=== PATIENT | female | born 1980 | race Caucasian/White ===

== ENCOUNTER 2019-02-27 08:44 | Emergency (ER) | payer OTHER ==
[~2019-02-27] VITALS: Ht 162.6 cm; Wt 74.8 kg
[~2019-02-27 08:44] MED LIST: ALBU90I INH; ALBU90OI INH; AMOCLA875 PO; CRUTCH3 USE; DOXY100 PO; Flagyl500 MG PO; HYDACE5 PO; NAPR500 PO; Naprosyn500 MG PO; Norco 5-325 Ta1 EACH PO; OXYACE5T PO; PENVK500 PO; PROM25 PO; RXHYDACE PO; SULTRIDS PO; Vibramycin100 MG PO
[2019-02-27] MEDS ORDERED: Percocet 5-3251 EACH PO (10:58)
[2019-02-27] MEDS ORDERED: Flagyl500 MG PO (10:58)
[2019-02-27] MEDS ORDERED: IBUP800 PO (10:58)
[2019-02-27 11:46] LABS: Candida species (DNA Probe) Negative (NEGATIVE); G. vaginalis (DNA Probe) Negative (NEGATIVE); T. vaginalis (DNA Probe) Negative (NEGATIVE)
== END 2019-02-27 11:38 | disposition home or self-care (01) ==
LOC: ER 08:44
PROVIDERS: Emergency Medicine
DX: N89.8 Other specified noninflammatory disorders of vagina (principal); R10.30 Lower abdominal pain, unspecified; R10.2 Pelvic and perineal pain; I10 Essential (primary) hypertension; J45.909 Unspecified asthma, uncomplicated; F17.200 Nicotine dependence, unspecified, uncomplicated; Z88.0 Allergy status to penicillin; Z88.5 Allergy status to narcotic agent; Z88.8 Allergy status to other drugs, medicaments and biological substances
CPT/HCPCS: 87070; 87077; 87147; 87185; 87205; 87480; 87510; 87660; 96372; 99284-25; A9270-GY; J0696

== ENCOUNTER 2019-04-27 21:11 | Emergency (ER) | payer OTHER ==
[~2019-04-27] VITALS: Ht 162.6 cm; Wt 79.4 kg
[~2019-04-27 21:11] MED LIST changes: +IBUP800 PO; +Percocet 5-3251 EACH PO
[2019-04-27 22:08] LABS: BASOPHILS ABSOLUTE AUTO 0.07 K/mm3 (0.00-0.23); BASOPHILS PERCENT AUTO 1 % (0-2); EOSINOPHILS ABSOLUTE AUTO 0.17 K/mm3 (0.00-0.68); EOSINOPHILS PERCENT AUTO 2 % (0-6); Hematocrit 41.5 % (33.0-51.0); Hemoglobin 13.7 g/dL (11.5-16.0); IMMATURE GRAN ABSOLUTE AUTO 0.04 K/mm3 (0.00-0.10); IMMATURE GRAN PERCENT AUTO 0 % (0-1); LYMPHOCYTES ABSOLUTE AUTO 2.93 K/mm3 (0.84-5.20); LYMPHOCYTES PERCENT AUTO 29 % (21-46); MONOCYTES ABSOLUTE AUTO 0.53 K/mm3 (0.16-1.47); MONOCYTES PERCENT AUTO 5 % (4-13); Mean Corpuscular HGB 32.2 pg (26.0-34.0); Mean Corpuscular Volume 97 fL (80-100); NEUTROPHILS ABSOLUTE AUTO 6.53 K/mm3 (1.96-9.15); NEUTROPHILS PERCENT AUTO 64 % (41-73); Platelet Count 398 K/mm3 (150-400); RDW Coefficient Variation 12.4 % (11.7-14.2); RDW Standard Deviation 44.6 fL (35.1-46.3); Red Blood Cell Count 4.26 M/mm3 (3.80-5.20); White Blood Cell Count 10.27 K/mm3 (4.00-11.30)
[2019-04-27 22:26] LABS: Alanine Aminotransfer (ALT/SGP 15 U/L (12-78); Albumin, Blood 3.6 g/dL (3.4-5.0); Albumin/Globulin Ratio 1.1 (0.8-1.8); Alk Phos 66 U/L (50-136); Anion Gap 6 mmol/L (6-16); Aspartate Aminotrans (AST/SGOT 3 U/L (12-37); Bilirubin, Total 0.2 mg/dL (0.1-1.0); Blood Urea Nitrogen 10 mg/dL (8-24); Bun/Creatinine Ratio 15.4 (12.0-20.0); CO2, Blood 28 mmol/L (21-32); Calcium, Blood 8.6 mg/dL (8.5-10.1); Chloride, Blood 108 mmol/L (98-108); Creatinine, Blood 0.65 mg/dL (0.40-1.00); Globulin, Blood 3.3 g/dL (2.2-4.0); Glomerular Filtration Rate >60 (60-); Glucose, Blood 81 mg/dL (70-99); Potassium, Blood 3.7 mmol/L (3.5-5.5); Sodium, Blood 142 mmol/L (136-145); Total Protein, Blood 6.9 g/dL (6.4-8.2)
[2019-04-27 22:37] LABS: Source, Urine Catheter
[2019-04-27 22:41] LABS: Bilirubin, Urine Neg (Neg); Blood, Urine 2+ (Neg); Glucose Qualitative, Urine Neg (Neg); Ketones, Urine Neg (Neg); Leukocyte Esterase, Urine Neg (Neg); Nitrite, Urine Neg (Neg); Protein, Urine 2+ (Neg); Specific Gravity, Urine 1.015 (1.003-1.022); Urobilinogen, Urine NORM (Normal)
[2019-04-27 22:46] LABS: Appearance, Urine Clear (Clear); Color, Urine Yellow (P-Yellow)
[2019-04-27 22:47] LABS: Squamous Epithelial Cells Few /hpf (Few); White Blood Cells, Urine 0-2 /hpf (0-5)
[2019-04-27 22:48] LABS: Amorphous Mod (0-Heavy); Bacteria Few /hpf; Mucus Light (0-Heavy)
[2019-04-27 23:30] LABS: Candida species (DNA Probe) Negative (NEGATIVE); G. vaginalis (DNA Probe) Positive (NEGATIVE); T. vaginalis (DNA Probe) Negative (NEGATIVE)
[2019-04-27] MEDS ORDERED: CEFD300 PO (23:54)
[2019-04-27] MEDS ORDERED: Roxicodone5 MG PO (23:54)
[2019-04-27] MEDS ORDERED: Flagyl500 MG PO (23:54)
[2019-04-30 00:06] LABS: CHLAMYDIA TRACHOMATIS, NAA Negative (Negative)
[2019-04-30 09:30] LABS: NEISSERIA GONORRHOEAE, NAA Positive (Negative)
== END 2019-04-28 00:52 | disposition home or self-care (01) ==
LOC: ER 21:11
PROVIDERS: Emergency Medicine; Physician Assistant
DX: N73.9 Female pelvic inflammatory disease, unspecified (principal); J45.909 Unspecified asthma, uncomplicated; F17.200 Nicotine dependence, unspecified, uncomplicated
CPT/HCPCS: 36415; 76830; 76856; 80053; 81001; 81025; 83690; 85025; 87480; 87491; 87510; 87591; 87660; 96361; 96365; 96375; 99284-25; J0696; J1170; J1885; J2405; J7030; P9612

== ENCOUNTER 2019-06-11 13:18 | Emergency (ER) | payer OTHER ==
[~2019-06-11] VITALS: Ht 162.6 cm; Wt 81.7 kg
[~2019-06-11 13:18] MED LIST changes: +CEFD300 PO; +Roxicodone5 MG PO
[2019-06-11] MEDS ORDERED: Prednisone20 MG PO (14:50)
[2019-06-11] MEDS ORDERED: Vistaril50 MG PO (14:50)
== END 2019-06-11 14:59 | disposition home or self-care (01) ==
LOC: ER 13:18
DX: S61.432A Puncture wound without foreign body of left hand, initial encounter (principal); S30.860A Insect bite (nonvenomous) of lower back and pelvis, initial encounter; J45.909 Unspecified asthma, uncomplicated; Z88.0 Allergy status to penicillin; Z88.5 Allergy status to narcotic agent; F17.200 Nicotine dependence, unspecified, uncomplicated; W57.XXXA Bitten or stung by nonvenomous insect and other nonvenomous arthropods, initial encounter
CPT/HCPCS: 96372; 99283-25; J1100; J1200